=== PATIENT | female | born 1935 | race African-American/Black ===

== ENCOUNTER 2016-09-11 02:56 | Inpatient (IN) | payer BC ==
[~2016-09-11] VITALS: Ht 180.3 cm; Wt 58.7 kg
[2016-09-11] MEDS ORDERED: SODIUM CHLORIDE 0.9% 1,000 ML IV ONE (04:51)
[2016-09-11] MEDS ORDERED: LORAZEPAM 2MG/ML CPJ IV ONE (05:00)
[2016-09-11 05:14] LABS: CHLORIDE 107 mEq/L (98-107)
[2016-09-11 05:16] LABS: EOSINOPHILS % 2.1 % (0.0-5.0); HEMOGLOBIN. 11.9 g/dL (12.0-16.0); LYMPHOCYTES % 23.1 % (20.0-50.0); MEAN CORPUSCULAR HEMOGLOBIN 31.4 pg (28.0-32.0); MEAN CORPUSCULAR VOLUME 92.6 fL (81.0-99.0); MEAN PLATELET VOLUME 8.1 fl (7.4-10.4); MONOCYTES % 5.8 % (2.0-8.0); PLATELET 256 x1000/uL (130-400); RED BLOOD CELL COUNT 3.78 mill/uL (4.2-5.4); RED CELL DISTRIBUTION WIDTH 13.5 % (11.6-14.6)
[2016-09-11 05:23] LABS: CARBON DIOXIDE 29 mEq/L (21-32)
[2016-09-11] MEDS ORDERED: LORAZEPAM 2MG/ML CPJ IV NR (09:00)
[2016-09-11] MEDS ORDERED: HALOPERIDOL LACTATE 5MG/ML VIAL IM NR (09:03)
[2016-09-11 10:03] LABS: KETONES URINE TRACE (NEGATIVE); LEUKOCYTE ESTERASE URINE 3+ (NEGATIVE); NITRITE URINE POSITIVE (NEGATIVE); OCCULT BLOOD URINE 2+ (NEGATIVE); PH URINE 6.5 (4.5-8.0); PROTEIN URINE 1+ (NEGATIVE)
[2016-09-11 10:07] LABS: CLARITY URINE CLOUDY (CLEAR); COLOR URINE PALE YELLOW (YELLOW)
[2016-09-11] MEDS ORDERED: MANNITOL 20% (20GM/100ML) BAG 500ML PREMIX IV ONE (10:45)
[2016-09-11] MEDS ORDERED: PHENYTOIN SODIUM 1,000 MG in SODIUM CHLORIDE 0.9% 100 ML IV ONE (10:45)
[2016-09-11] MEDS ORDERED: NICARDIPINE 50 MG in SODIUM CHLORIDE 0.9% 230 ML IV PRN (11:30)
[2016-09-11] MEDS ORDERED: NICARDIPINE 100 MG in SODIUM CHLORIDE 0.9% 100 ML IV PRN (12:00)
[2016-09-11] MEDS: DEXT 5%/LACTATED RINGERS 1,000 ML IV SCH (12:43)
[2016-09-11] MEDS ORDERED: IPRATROPIUM/ALBUTEROL 0.5-3(2.5)MG/3ML NEB INH PRN (13:15)
[2016-09-11] MEDS ORDERED: ONDANSETRON HCL 4MG/2ML VIAL IV PRN (13:15)
[2016-09-11] MEDS ORDERED: LEVOFLOXACIN 500MG PREMIX 100 ML IV SCH (13:15)
[2016-09-11] MEDS: LEVOFLOXACIN 750MG PREMIX 150 ML IV SCH (14:36)
[2016-09-11] MEDS: DEXAMETHASONE 4MG/ML 1ML VIAL IV SCH ×2 (14:41→18:14)
[2016-09-11] MEDS ORDERED: POTASSIUM CHLORIDE INJ 40 MEQ in DEXT 5% WATER 250 ML IV NR (15:00)
[2016-09-11 16:36] LABS: PROTHROMBIN TIME 10.7 sec
[2016-09-11 16:54] LABS: CREATINE KINASE 245 IU/L (26-192); TROPONIN I < 0.02 ng/mL (0.00-0.04)
[2016-09-11] MEDS: PHENYTOIN SODIUM 100MG/2ML VIAL IV SCH (22:10)
[2016-09-11 23:40] LABS: CREATINE KINASE 249 IU/L (26-192); TROPONIN I < 0.02 ng/mL (0.00-0.04)
[2016-09-12] MEDS: DEXAMETHASONE 4MG/ML 1ML VIAL IV SCH ×3 (00:16→20:02)
[2016-09-12 04:54] LABS: BASOPHILS % 0.4 % (0.0-2.0); EOSINOPHILS % 0.1 % (0.0-5.0); HEMATOCRIT. 38.1 % (36.0-48.0); HEMOGLOBIN. 12.9 g/dL (12.0-16.0); LYMPHOCYTES % 8.6 % (20.0-50.0); MEAN CORPUSCULAR HEMOGLOBIN 31.2 pg (28.0-32.0); MEAN CORPUSCULAR VOLUME 92.4 fL (81.0-99.0); MEAN PLATELET VOLUME 8.4 fl (7.4-10.4); MONOCYTES % 1.7 % (2.0-8.0); NEUTROPHILS % 89.2 % (40.0-76.0); PLATELET 253 x1000/uL (130-400); RED BLOOD CELL COUNT 4.13 mill/uL (4.2-5.4); RED CELL DISTRIBUTION WIDTH 12.9 % (11.6-14.6)
[2016-09-12 05:28] LABS: CARBON DIOXIDE 28 mEq/L (21-32); CHLORIDE 103 mEq/L (98-107); HDL CHOLESTEROL 61 mg/dL (40-59); LDL CHOLESTEROL 130 mg/dL (5-100)
[2016-09-12 05:39] LABS: T4 FREE 1.12 ng/dL (0.76-1.46)
[2016-09-12] MEDS: PHENYTOIN SODIUM 100MG/2ML VIAL IV SCH ×3 (06:30→21:27)
[2016-09-12] MEDS: DEXT 5%/LACTATED RINGERS 1,000 ML IV SCH (06:30)
[2016-09-12] MEDS ORDERED: GELATIN SPONGE,ABSORBABLE SZ 100 ONE (07:03)
[2016-09-12] MEDS ORDERED: POVIDONE-IODINE OINT 28.4GM TOP ONE (07:04)
[2016-09-12] MEDS ORDERED: NORMAL SALINE 0.9% 10 ML SYR ONE (07:05)
[2016-09-12] MEDS ORDERED: BACITRACIN ZINC 15GM TUBE TOP ONE (07:05)
[2016-09-12] MEDS ORDERED: LIDOCAINE HCL/EPINEPHRINE 0.5%-EPI 1:200,000 50 ML VIAL INFIL ONE (07:05)
[2016-09-12] MEDS ORDERED: FENTANYL CITRATE/PF 50MCG/ML 5ML VIAL ONE (07:05)
[2016-09-12] MEDS ORDERED: THROMBIN (BOVINE) 5000 UNITS/VIAL TOP ONE (07:05)
[2016-09-12] MEDS ORDERED: FENTANYL CITRATE/PF 50MCG/ML 2ML VIAL ONE (07:05)
[2016-09-12] MEDS ORDERED: BACITRACIN 50,000 UNITS/VIAL ONE (07:06)
[2016-09-12] MEDS ORDERED: NITROGLYCERIN 50MG PREMIX 0 ML IV ONE (07:51)
[2016-09-12] MEDS ORDERED: MANNITOL 20% 0 ML IV ONE (07:51)
[2016-09-12] MEDS ORDERED: CEFAZOLIN SODIUM 1000MG/VIAL ONE (08:50)
[2016-09-12] MEDS ORDERED: ESMOLOL HCL 10MG/ML 10ML VIAL IV ONE (08:50)
[2016-09-12] MEDS ORDERED: ROCURONIUM BROMIDE 10MG/ML VIAL 5ML IV ONE (08:50)
[2016-09-12] MEDS ORDERED: PROPOFOL 200MG/20ML VIAL IV ONE ×2 (08:50→10:03)
[2016-09-12] MEDS ORDERED: EPHEDRINE SULFATE 50MG/ML VIAL ONE (08:50)
[2016-09-12] MEDS ORDERED: PHENYLEPHRINE HCL 10 MG/ML 1ML (IV VIAL) IV ONE (08:50)
[2016-09-12] MEDS: PANTOPRAZOLE SODIUM 40 MG/VIAL IV SCH (13:22)
[2016-09-12] MEDS: MORPHINE SULFATE 2 MG/ML CPJ (NOT FOR IM USE) IV PRN (20:03)
[2016-09-13] MEDS: DEXT 5%/LACTATED RINGERS 1,000 ML IV SCH ×2 (02:51→12:41)
[2016-09-13] MEDS: PHENYTOIN SODIUM 100MG/2ML VIAL IV SCH ×3 (05:14→21:06)
[2016-09-13] MEDS: DEXAMETHASONE 4MG/ML 1ML VIAL IV SCH ×2 (08:14→21:06)
[2016-09-13] MEDS: PANTOPRAZOLE SODIUM 40 MG/VIAL IV SCH (08:14)
[2016-09-13] MEDS: MORPHINE SULFATE 2 MG/ML CPJ (NOT FOR IM USE) IV PRN ×2 (12:38→22:03)
[2016-09-13] MEDS: LEVOFLOXACIN 750MG PREMIX 150 ML IV SCH (14:04)
[2016-09-14] MEDS: MORPHINE SULFATE 2 MG/ML CPJ (NOT FOR IM USE) IV PRN ×3 (03:28→23:01)
[2016-09-14] MEDS: PHENYTOIN SODIUM 100MG/2ML VIAL IV SCH ×3 (05:09→22:22)
[2016-09-14] MEDS: DEXAMETHASONE 4MG/ML 1ML VIAL IV SCH ×2 (08:00→22:23)
[2016-09-14] MEDS: PANTOPRAZOLE SODIUM 40 MG/VIAL IV SCH (08:02)
[2016-09-14] MEDS: DEXT 5%/LACTATED RINGERS 1,000 ML IV SCH ×2 (10:00→22:23)
[2016-09-15] MEDS: MORPHINE SULFATE 2 MG/ML CPJ (NOT FOR IM USE) IV PRN ×4 (01:17→20:51)
[2016-09-15] MEDS: PHENYTOIN SODIUM 100MG/2ML VIAL IV SCH ×2 (05:03→14:22)
[2016-09-15 05:20] LABS: BASOPHILS % 0.3 % (0.0-2.0); EOSINOPHILS % 0.1 % (0.0-5.0); HEMATOCRIT. 34.6 % (36.0-48.0); HEMOGLOBIN. 11.7 g/dL (12.0-16.0); LYMPHOCYTES % 13.9 % (20.0-50.0); MEAN CORPUSCULAR HEMOGLOBIN 31.4 pg (28.0-32.0); MEAN CORPUSCULAR VOLUME 92.7 fL (81.0-99.0); MEAN PLATELET VOLUME 8.1 fl (7.4-10.4); MONOCYTES % 5.2 % (2.0-8.0); NEUTROPHILS % 80.5 % (40.0-76.0); PLATELET 231 x1000/uL (130-400); RED BLOOD CELL COUNT 3.73 mill/uL (4.2-5.4); RED CELL DISTRIBUTION WIDTH 13.1 % (11.6-14.6)
[2016-09-15 05:45] LABS: CHLORIDE 103 mEq/L (98-107)
[2016-09-15 05:51] LABS: CARBON DIOXIDE 28 mEq/L (21-32)
[2016-09-15] MEDS: PANTOPRAZOLE SODIUM 40 MG/VIAL IV SCH (08:37)
[2016-09-15] MEDS: DEXAMETHASONE 4MG/ML 1ML VIAL IV SCH ×2 (08:37→21:16)
[2016-09-15] MEDS: POTASSIUM CHLORIDE 20MEQ/PACKET PO SCH ×2 (15:48→19:26)
[2016-09-15] MEDS: LEVOFLOXACIN 750MG PREMIX 150 ML IV SCH (15:48)
[2016-09-15] MEDS: DEXT 5%/LACTATED RINGERS 1,000 ML IV SCH (15:49)
[2016-09-15] MEDS: PHENYTOIN 100 MG/4 ML UDC PO SCH (21:16)
[2016-09-15] MEDS: DIPHENHYDRAMINE 25MG CAPSULE PO PRN (21:17)
[2016-09-16] MEDS: MORPHINE SULFATE 2 MG/ML CPJ (NOT FOR IM USE) IV PRN ×3 (00:37→20:34)
[2016-09-16] MEDS: PHENYTOIN 100 MG/4 ML UDC PO SCH ×3 (06:44→21:06)
[2016-09-16] MEDS: PANTOPRAZOLE SODIUM 40 MG/VIAL IV SCH (08:19)
[2016-09-16] MEDS: DEXAMETHASONE 4MG/ML 1ML VIAL IV SCH ×2 (08:19→21:00)
[2016-09-16] MEDS: DIPHENHYDRAMINE 25MG CAPSULE PO PRN ×2 (14:55→20:34)
[2016-09-16 17:45] LABS: CHLORIDE 103 mEq/L (98-107)
[2016-09-16 17:51] LABS: CARBON DIOXIDE 29 mEq/L (21-32)
[2016-09-16] MEDS: ACETAMINOPHEN 325MG TABLET PO PRN (20:34)
[2016-09-17 07:09] LABS: EOSINOPHILS % 3.7 % (0.0-5.0); HEMATOCRIT. 36.3 % (36.0-48.0); HEMOGLOBIN. 12.1 g/dL (12.0-16.0); LYMPHOCYTES % 40.7 % (20.0-50.0); MEAN CORPUSCULAR HEMOGLOBIN 31.2 pg (28.0-32.0); MEAN CORPUSCULAR VOLUME 93.8 fL (81.0-99.0); MEAN PLATELET VOLUME 7.9 fl (7.4-10.4); MONOCYTES % 5.9 % (2.0-8.0); NEUTROPHILS % 48.7 % (40.0-76.0); PLATELET 265 x1000/uL (130-400); RED BLOOD CELL COUNT 3.87 mill/uL (4.2-5.4); RED CELL DISTRIBUTION WIDTH 13.5 % (11.6-14.6)
[2016-09-17 07:54] LABS: CARBON DIOXIDE 32 mEq/L (21-32); CHLORIDE 103 mEq/L (98-107)
[2016-09-17] MEDS: DEXAMETHASONE 4MG/ML 1ML VIAL IV SCH ×2 (08:26→21:06)
[2016-09-17] MEDS: FAMOTIDINE 20MG TABLET PO SCH (08:27)
[2016-09-17] MEDS ORDERED: POTASSIUM CHLORIDE 20MEQ TABLET SR PO NR (10:40)
[2016-09-17] MEDS: PHENYTOIN 100 MG/4 ML UDC PO SCH ×2 (14:18→21:06)
[2016-09-17] MEDS: LEVOFLOXACIN 750MG PREMIX 150 ML IV SCH (14:55)
[2016-09-17] MEDS: ATORVASTATIN CALCIUM 20MG TABLET PO SCH (21:06)
[2016-09-17] MEDS: DIPHENHYDRAMINE 25MG CAPSULE PO PRN (21:06)
[2016-09-17] MEDS ORDERED: MORPHINE SULFATE 4 MG/ML CPJ (NOT FOR IM USE) IV PRN ×2 (23:15)
[2016-09-17] MEDS: LORAZEPAM 2MG/ML CPJ IV PRN (23:37)
[2016-09-18] MEDS: PHENYTOIN 100 MG/4 ML UDC PO SCH ×3 (06:39→22:04)
[2016-09-18] MEDS ORDERED: POTASSIUM CHLORIDE 20MEQ TABLET SR PO NR (10:00)
[2016-09-18] MEDS ORDERED: LACTULOSE 20G/30ML UDC PO NR (10:00)
[2016-09-18] MEDS: ATORVASTATIN CALCIUM 20MG TABLET PO SCH ×2 (10:07→22:04)
[2016-09-18] MEDS: FAMOTIDINE 20MG TABLET PO SCH (10:07)
[2016-09-18] MEDS: DEXAMETHASONE 4MG/ML 1ML VIAL IV SCH ×2 (10:08→22:02)
[2016-09-18] MEDS: DIPHENHYDRAMINE 25MG CAPSULE PO PRN (22:04)
[2016-09-19] MEDS: DEXAMETHASONE 4MG/ML 1ML VIAL IV SCH ×2 (09:20→23:30)
[2016-09-19] MEDS: FAMOTIDINE 20MG TABLET PO SCH (09:20)
[2016-09-19] MEDS: PHENYTOIN 100 MG/4 ML UDC PO SCH ×2 (09:20→21:13)
[2016-09-19] MEDS ORDERED: POTASSIUM CHLORIDE 20MEQ/PACKET PO ONE (17:00)
[2016-09-19] MEDS: ATORVASTATIN CALCIUM 20MG TABLET PO SCH (21:13)
[2016-09-19] MEDS: DIPHENHYDRAMINE 25MG CAPSULE PO PRN (22:00)
[2016-09-19] MEDS: ACETAMINOPHEN 325MG TABLET PO PRN (22:00)
[2016-09-20] MEDS: DEXAMETHASONE 4MG/ML 1ML VIAL IV SCH (08:56)
[2016-09-20] MEDS: PHENYTOIN 100 MG/4 ML UDC PO SCH ×2 (08:56→20:45)
[2016-09-20] MEDS: FAMOTIDINE 20MG TABLET PO SCH (08:56)
[2016-09-20] MEDS: ATORVASTATIN CALCIUM 20MG TABLET PO SCH (20:45)
[2016-09-20] MEDS ORDERED: POTASSIUM CHLORIDE 20MEQ TABLET SR PO NR (21:15)
[2016-09-20] MEDS: DIPHENHYDRAMINE 25MG CAPSULE PO PRN (21:22)
[2016-09-20] MEDS: ACETAMINOPHEN 325MG TABLET PO PRN (21:26)
[2016-09-21] MEDS: DEXAMETHASONE 4MG/ML 1ML VIAL IV SCH ×2 (00:58→08:28)
[2016-09-21] MEDS: LORAZEPAM 2MG/ML CPJ IV PRN (01:54)
[2016-09-21] MEDS: PHENYTOIN 100 MG/4 ML UDC PO SCH ×2 (08:28→22:03)
[2016-09-21] MEDS: FAMOTIDINE 20MG TABLET PO SCH (08:28)
[2016-09-21 09:07] LABS: HEMATOCRIT. 36.4 % (36.0-48.0); HEMOGLOBIN. 12.2 g/dL (12.0-16.0); MEAN CORPUSCULAR HEMOGLOBIN 31.3 pg (28.0-32.0); MEAN CORPUSCULAR VOLUME 93.7 fL (81.0-99.0); MEAN PLATELET VOLUME 7.3 fl (7.4-10.4); PLATELET 313 x1000/uL (130-400); RED BLOOD CELL COUNT 3.89 mill/uL (4.2-5.4); RED CELL DISTRIBUTION WIDTH 13.8 % (11.6-14.6)
[2016-09-21 09:39] LABS: CARBON DIOXIDE 30 mEq/L (21-32); CHLORIDE 104 mEq/L (98-107)
[2016-09-21 13:50] LABS: PLATELET ESTIMATE NORMAL
[2016-09-21 19:59] LABS: CLARITY URINE CLEAR (CLEAR); COLOR URINE YELLOW (YELLOW); KETONES URINE NEGATIVE (NEGATIVE); LEUKOCYTE ESTERASE URINE 1+ (NEGATIVE); NITRITE URINE NEGATIVE (NEGATIVE); OCCULT BLOOD URINE NEGATIVE (NEGATIVE); PROTEIN URINE NEGATIVE (NEGATIVE); SPECIFIC GRAVITY URINE 1.011 (1.005-1.030); UROBILINOGEN URINE 0.2 E.U./dL (0.2-1.0)
[2016-09-21] MEDS: ATORVASTATIN CALCIUM 20MG TABLET PO SCH (22:03)
[2016-09-21] MEDS: ACETAMINOPHEN 325MG TABLET PO PRN (22:03)
[2016-09-21] MEDS: ASCORBIC ACID 500 MG TABLET PO SCH (22:03)
[2016-09-21] MEDS: DIPHENHYDRAMINE 25MG CAPSULE PO PRN (22:03)
[2016-09-22] MEDS: DEXAMETHASONE 4MG/ML 1ML VIAL IV SCH ×3 (02:22→22:36)
[2016-09-22] MEDS: PHENYTOIN 100 MG/4 ML UDC PO SCH ×2 (08:54→22:37)
[2016-09-22] MEDS: MULTIVITAMINS,THER W-MINERALS TABLET PO SCH (08:55)
[2016-09-22] MEDS: ASCORBIC ACID 500 MG TABLET PO SCH ×2 (08:55→22:39)
[2016-09-22] MEDS: FAMOTIDINE 20MG TABLET PO SCH (08:55)
[2016-09-22] MEDS: QUETIAPINE FUMARATE 25MG TABLET PO SCH (11:44)
[2016-09-22] MEDS: ATORVASTATIN CALCIUM 20MG TABLET PO SCH (22:36)
[2016-09-23] MEDS: DEXAMETHASONE 4MG/ML 1ML VIAL IV SCH ×2 (09:07→21:54)
[2016-09-23] MEDS: FAMOTIDINE 20MG TABLET PO SCH (09:07)
[2016-09-23] MEDS: PHENYTOIN 100 MG/4 ML UDC PO SCH ×2 (09:08→21:55)
[2016-09-23] MEDS: QUETIAPINE FUMARATE 25MG TABLET PO SCH (09:08)
[2016-09-23] MEDS: MULTIVITAMINS,THER W-MINERALS TABLET PO SCH (09:08)
[2016-09-23] MEDS: ASCORBIC ACID 500 MG TABLET PO SCH ×2 (09:08→21:54)
[2016-09-23] MEDS: DIPHENHYDRAMINE 25MG CAPSULE PO PRN (21:54)
[2016-09-23] MEDS: ATORVASTATIN CALCIUM 20MG TABLET PO SCH (21:54)
[2016-09-24] MEDS: FAMOTIDINE 20MG TABLET PO SCH (09:00)
[2016-09-24] MEDS: MULTIVITAMINS,THER W-MINERALS TABLET PO SCH (09:00)
[2016-09-24] MEDS: DEXAMETHASONE 4MG/ML 1ML VIAL IV SCH (09:00)
[2016-09-24] MEDS: ASCORBIC ACID 500 MG TABLET PO SCH ×2 (09:00→20:48)
[2016-09-24] MEDS: QUETIAPINE FUMARATE 25MG TABLET PO SCH (09:07)
[2016-09-24] MEDS: PHENYTOIN 100 MG/4 ML UDC PO SCH ×2 (09:07→20:49)
[2016-09-24] MEDS: DIPHENHYDRAMINE 25MG CAPSULE PO PRN ×2 (11:58→20:49)
[2016-09-24] MEDS ORDERED: DEXAMETHASONE 2MG TABLET PO SCH (17:00)
[2016-09-24] MEDS: ATORVASTATIN CALCIUM 20MG TABLET PO SCH (20:48)
[2016-09-24] MEDS: ACETAMINOPHEN 325MG TABLET PO PRN (20:48)
[2016-09-24] MEDS: DEXAMETHASONE 2MG TABLET PO SCH (20:49)
[2016-09-25] MEDS: PHENYTOIN 100 MG/4 ML UDC PO SCH (11:30)
[2016-09-25] MEDS: ASCORBIC ACID 500 MG TABLET PO SCH (11:30)
[2016-09-25] MEDS: MULTIVITAMINS,THER W-MINERALS TABLET PO SCH (11:30)
[2016-09-25] MEDS: QUETIAPINE FUMARATE 25MG TABLET PO SCH (11:31)
[2016-09-25] MEDS: FAMOTIDINE 20MG TABLET PO SCH (11:31)
[2016-09-25] MEDS: DEXAMETHASONE 2MG TABLET PO SCH (11:31)
[2016-09-25 17:28] VITALS: BP 112/78
== END 2016-09-25 20:18 | DRG 25 ==
LOC: ER 02:56 → EDBEDREQ 05:50 → MICUNO 10:40 → EDBEDREQSVC 10:47 → EDBEDREQTM 10:47 → EDBEDREQ 10:47 → ENRESERV 11:10 → 6EST 09-16 10:15
PROVIDERS: ADMIT Internal Medicine; ATTEND Internal Medicine
PROC: 00C40ZZ Extirpation of Matter from Intracranial Subdural Space, Open Approach (ICD-10-PCS; principal; 2016-09-12)
PROC: 009400Z Drainage of Intracranial Subdural Space with Drainage Device, Open Approach (ICD-10-PCS; principal; 2016-09-12)
PROC: 00U207Z Supplement Dura Mater with Autologous Tissue Substitute, Open Approach (ICD-10-PCS; 2016-09-12)
PROC: 4A103BD Monitoring of Intracranial Pressure, Percutaneous Approach (ICD-10-PCS; 2016-09-12)
DX: S06.5X9A Traumatic subdural hemorrhage with loss of consciousness of unspecified duration, initial encounter (principal); G93.40 Encephalopathy, unspecified; N39.0 Urinary tract infection, site not specified; F03.90 Unspecified dementia, unspecified severity, without behavioral disturbance, psychotic disturbance, mood disturbance, and anxiety; S06.6X9A Traumatic subarachnoid hemorrhage with loss of consciousness of unspecified duration, initial encounter; W19.XXXA Unspecified fall, initial encounter; I10 Essential (primary) hypertension; E78.5 Hyperlipidemia, unspecified; R26.9 Unspecified abnormalities of gait and mobility; Y92.89 Other specified places as the place of occurrence of the external cause; Y93.89 Activity, other specified; Y99.8 Other external cause status
CPT/HCPCS: 36415; 51702; 70450; 71010; 80048; 80053; 80061; 80185; 81001; 82550; 84439; 84443; 84484; 85025; 85610; 85730; 87040; 87070; 87075; 87205; 88304; 92610; 93005; 96361; 96372; 96374; 96375; 96376; 97163; 97167; 97530; 97535; 99285; A4216; A6261; C1713; C1893; C9113; J0171; J0690; J1100; J1165; J1630; J1956; J2060; J2270; J2370; J2704; J3010; J3480; J3490; J7030; J7040; J7050; J7060; J8540; Q0163; A4315